=== PATIENT | male | born 1990 | race Caucasian/White ===

== ENCOUNTER 2017-01-10 17:04 | Inpatient (IN) | payer BC ==
[~2017-01-10] VITALS: Ht 177.8 cm; Wt 103.9 kg
[~2017-01-10 17:04] MED LIST: LRT5 PO
[2017-01-10] MEDS ORDERED: MoRPHine SULFATE 4 MG/ML 1 ML CARP\\VIAL IV STA (18:28)
[2017-01-10] MEDS ORDERED: ONDANSETRON INJ 2 MG/ML 2 ML VIAL IV STA ×2 (18:28→22:18)
[2017-01-10] MEDS ORDERED: SODIUM CHLORIDE 0.9% 1000ML 1,000 ML IV STA (18:28)
[2017-01-10 18:38] LABS: BASO % 0.1 %; BASO ABS # 0.01 K/uL (0-0.2); COMPLETE YES; EOS % 0.1 %; IG% 0.2 %; LYMPH % 7.2 %; LYMPH ABS # 0.94 K/uL (1.2-3.4); MEAN CORPUSCULAR HEMOGLOBIN 31.7 pg (25-34); MEAN CORPUSCULAR HGB CONC 35.7 g/dl (32-36); MEAN PLATELET VOLUME 9.8 fL (7.4-10.4); MONO % 4.3 %; NEUT % 88.1 %; PLATELET COUNT 255 K/uL (130-400); RED BLOOD COUNT 5.17 M/uL (4.7-6.1); WHITE BLOOD COUNT 13.06 K/uL (4.8-10.8)
--- NOTE | 2017-01-10 18:46 | EMERGENCY ROOM VISIT NOTE ---
History Report prepared by Jan: Jackson Mccarty Under the Supervision of: Dr. Imelda Sheth M.D. First contact with patient: 18:12 Chief Complaint: ABDOMINAL PAIN Stated Complaint: SHARP ABD PAIN Nursing Triage Summary: epigastic pain starting after lunch. History of Present Illness The patient is a 26 year old male who presents to the Emergency Room with complaints of intermittent abdominal pain beginning prior to arrival. The patient states that sometimes his pain is a 2/10 and then other times it is a 10 /10 in severity. He notes that he had an episode on his way to the ER and while in the waiting room. The patient states it feels like he has gas. He notes that he started a new diet a few weeks ago. The patient reports that for breakfast he had two teaspoons of apple cider vinegar with water. He has not had problems with this breakfast before. The patient states that for lunch he had a grapefruit, apple, and two pieces of chicken. He notes that yesterday he ate a sandwich, broccoli, cauliflower, and chicken. He also notes that he ran on the treadmill. The patient denies any significant weight loss and smoking. He reports that he does occasionally consume and average of 5 alcoholic beverages. The patient notes that he sees his PCP every 3 years. Source of History: patient Onset: Prior to arrival Position: abdomen Symptom Intensity: 5/10 Timing: intermittent Note: Associated symptoms: 'gas-like feeling'. The patient denies weight loss. Review of Systems See HPI for pertinent positives & negatives. A total of 10 systems reviewed and were otherwise negative. Past Medical & Surgical Medical Problems: (1) Small bowel obstruction Family History No pertinent family history stated. Social History Smoking Status: Never Smoker Alcohol Use: occasionally Marital Status: Housing Status: lives with significant other Current/Historical Medications Scheduled Amoxicillin & Pot Clavulanate (Augmentin 875-125 mg), 1 TAB PO BID Garcinia Cambogia-Chromium (Garcinia Cambogia), 3 TABS PO TODAY Scheduled PRN Ibuprofen Tab (Advil), 400 MG PO Q6 PRN for Headache or Pain Allergies Coded Allergies: No Known Allergies (Verified , 05/12/03) Physical Exam Vital Signs Date Time Temp Pulse Resp B/P Pulse Ox O2 Delivery O2 Flow Rate FiO2 01/10/17 23:33 62 18 144/78 97 Room Air 01/10/17 22:17 Room Air 01/10/17 22:15 78 18 135/85 97 Room Air 01/10/17 19:55 57 18 139/94 98 Room Air 01/10/17 17:08 36.7 81 16 155/100 92 Room Air Physical Exam Vital signs reviewed. General: Well-appearing, in no significant distress. HEENT: No scleral icterus, PERRLA, neck supple. Atraumatic. Cardiovascular: Regular rate and rhythm, no extra sounds. Pulmonary: Clear to auscultation bilaterally, normal work of breathing. Abdomen: Soft, epigastric tenderness, nondistended, positive bowel sounds. Musculoskeletal: Atraumatic, no peripheral edema. Neurologic: Patient awake alert and oriented x 3, full strength in all 4 extremities. Cranial nerves 2 through 12 grossly intact. Skin: Warm, dry, no rash Medical Decision & Procedures ER Provider Diagnostic Interpretation: Radiology results as stated below per my review and radiologist interpretation: ABDOMINAL ULTRASOUND, RIGHT UPPER QUADRANT HISTORY: epigastric pain, colicky. COMPARISON: None. FINDINGS: Pancreas: The pancreas demonstrates a normal echotexture. Liver: Unremarkable. Gallbladder: No gallbladder wall thickening. No gallstones. CBD: 5 mm. Right kidney: No hydronephrosis. IMPRESSION: No significant abnormality identified within the right upper quadrant. Electronically signed by: Juan Luis Brenner M.D. 01/10/2017 7:39 PM Dictated Date/Time: 01/10/2017 7:39 PM ABDOMEN AND PELVIS CT WITH IV CONTRAST CT DOSE: 701.98 mGy.cm HISTORY: epigastric abdominal pain TECHNIQUE: Multiaxial CT images of the abdomen and pelvis were performed following the use of intravenous contrast. COMPARISON STUDY: Abdominal ultrasound 01/10/2017. FINDINGS: The lung bases are clear. No pneumoperitoneum. No pneumatosis. The liver, gallbladder, pancreas, spleen, adrenal glands, and kidneys are unremarkable. No hydronephrosis. No retroperitoneal lymphadenopathy. The bladder is unremarkable. Trace pelvic free fluid. Trace fluid surrounding a few distended loops of small bowel within the right lower quadrant. These measure up to 3.5 cm in diameter. This is consistent with a small bowel obstruction. The distal transition point is seen within the right anterior abdomen on image 256. There may also be a proximal transition point within the right anterior abdomen on image 186. The proximal to mid loops of small bowel are decompressed. Therefore, these findings raise the possibility of a closed loop obstruction from an internal hernia. The appendix is surgically absent. A few colonic diverticula. IMPRESSION: 1. A few distended loops of small bowel located within the right lower quadrant consistent with a small bowel obstruction. There is small amount of mesenteric fluid surrounding the distended loops of small bowel. The small bowel both proximal and distal to these distended loops are decompressed. Therefore, this raises the possibility of a closed loop obstruction from an internal hernia. 2. The appendix is surgically absent. 3. A few colonic diverticula. 4. These findings were discussed with Dr. Sheth at 8:29 PM on 01/10/2017. Electronically signed by: Juan Luis Brenner M.D. 01/10/2017 8:29 PM Dictated Date/Time: 01/10/2017 8:19 PM Laboratory Results Test 01/10/17 18:20 01/10/17 18:45 Total Bilirubin 0.6 mg/dl (0.2-1) Direct Bilirubin 0.1 mg/dl (0-0.2) Aspartate Amino Transf (AST/SGOT) 19 U/L (15-37) Alanine Aminotransferase (ALT/SGPT) 34 U/L (12-78) Alkaline Phosphatase 67 U/L (45-117) Total Protein 8.4 gm/dl (6.4-8.2) Albumin 4.5 gm/dl (3.4-5.0) Lipase 156 U/L (73-393) Urine Color YELLOW Urine Appearance CLEAR (CLEAR) Urine pH 5.0 (4.5-7.5) Urine Specific [place] 1.029 (1.000-1.030) Urine Protein NEG (NEG) Urine Glucose (UA) NEG (NEG) Urine Ketones 1+ (NEG) Urine Occult Blood NEG (NEG) Urine Nitrite NEG (NEG) Urine Bilirubin NEG (NEG) Urine Urobilinogen NEG (NEG) Urine Leukocyte Esterase NEG (NEG) Laboratory results per my review. Medications Administered Medications (Trade) Dose Ordered Sig/Brandon Route Start Time Stop Time Status Last Admin Dose Admin Sodium Chloride (Nss 1000ml) 1,000 ml @ 999 mls/hr Q1H1M STAT IV 01/10/17 18:28 01/10/17 19:28 DC 01/10/17 18:46 999 MLS/HR Ondansetron HCl 4 mg 4 mg NOW STAT IV 01/10/17 18:28 01/10/17 18:30 DC 01/10/17 18:47 4 MG Acetaminophen/ Empty Bag (Ofirmev Iv/ Empty Iv Bag 100ml) 65 ml @ 260 mls/hr NOW STAT IV 01/10/17 18:48 01/10/17 19:02 DC 01/10/17 19:55 260 MLS/HR Ondansetron HCl (Zofran Inj) 4 mg NOW STAT IV 01/10/17 22:18 01/10/17 22:19 DC 01/10/17 22:26 4 MG ECG Indication: abdominal pain Rate (beats per minute): 65 Rhythm: sinus with SA Findings: RBBB (incomplete), no acute ischemic change, no ectopy ED Course 1821: Past medical records reviewed. The patient was evaluated in room B05. A complete history and physical examination was performed. 1828: Order Zofran Inj 4mg IV, Morphine Sulfate 4mg IV (Declined), Sodium Chloride 1000 ml @ 999 mls/hr IV 8: Ordered Acetaminophen 650mg/Empty Bag 65ml @ 260 mls/hr 2015: I reevaluated the patient and discussed his exam finding and treatment plan. He verbalized complete agreement. 2030: I discussed the patient's results with Dr. Brenner, Radiology to further evaluate the patient. 2035: I discussed the patient's case with Dr. Sena, Surgery to further evaluate the patient. 2049: Upon reevaluation, the patient is resting comfortably. I discussed laboratory and radiographic results with him. He verbalized agreement of the treatment plan. I spoke with Dr. Gresham of the [facility] Hospitalist Service. The patient will be evaluated for further management and care. 8: Ordered Zofran Inj 4mg IV Medical Decision Differential diagnosis: Etiologies such as appendicitis, diverticulitis, PUD, biliary pathology, UTI, pancreatitis, obstruction, mesenteric ischemia, aortic pathology, infections, inflammatory bowel disease, renal colic, as well as others were entertained. This patient was evaluated and appeared to be in some discomfort, but it appears to be a colicky type pain. IV access was obtained and laboratory work was drawn. Patient was hydrated with normal saline solution, given IV Zofran, but declined pain medication. Ultrasound of right upper quadrant was negative for acute cholecystitis. Laboratory work reveals a normal lipase. CT scan of the abdomen and pelvis was performed and is concerning for a partial SBO with a questionable closed loop. Dr. Multani in general surgery was consulted. He has recommended admission to the medicine service for nothing by mouth status, IV hydration and possible NG tube if needed. The patient was informed of the findings. The hospitalist service was contacted. He will be evaluated for further management. The patient is aware of plan and agrees. Consults Time Called: 2026 Consulting Physician: Dr. Brenner, Radiology Returned Call: 2029 I discussed the patient's results with Dr. Brenner, Radiology to further evaluate the patient. Additional Consults: Time Called: 2031 Consulted Physician: Dr. Sena, Surgery Returned Call: 2035 Additional Comments: I discussed the patient's case with Dr. Sena, Surgery to further evaluate the patient. Time Called: 2047 Consulted Physician: Dr. Gresham, Hospitalist Returned Call: 2049 Additional Comments: I spoke with Dr. Gresham of the [facility] Hospitalist Service. The patient will be evaluated for further management and care. Impression Primary Impression: Small bowel obstruction Scribe Attestation The scribe's documentation has been prepared under my direction and personally reviewed by me in its entirety. I confirm that the note above accurately reflects all work, treatment, procedures, and medical decision making performed by me. Departure Information Dispostion Being Evaluated By Hospitalist Prescriptions Amoxicillin & Pot Clavulanate (Augmentin 875-125 mg) 1 Tab Tab 1 TAB PO BID for 4 Days, #8 TAB Prov: Alfreda Crews PA-C 01/13/17 Referrals No Doctor, Assigned (PCP) Patient Instructions [facility]
[2017-01-10] MEDS ORDERED: ACETAMINOPHEN IV 650 MG in EMPTY BAG 0 ML IV STA (18:48)
[2017-01-10] MEDS ORDERED: GARC1TAB PO (18:53)
[2017-01-10] MEDS ORDERED: IBUP-103 PO (18:53)
[2017-01-10 18:54] LABS: BUN/CREATININE RATIO 19.2 (10-20); CREATININE 1.1 mg/dl (0.60-1.40); MAGNESIUM 2.3 mg/dl (1.8-2.4); POTASSIUM 4.1 mmol/L (3.5-5.1)
[2017-01-10 19:11] LABS: URINE APPEARANCE CLEAR (CLEAR); URINE BILIRUBIN NEG (NEG); URINE COLOR YELLOW; URINE NITRITE NEG (NEG); URINE SPECIFIC GRAVITY 1.029 (1.000-1.030); UROBILINOGEN NEG (NEG); ZZUR CULT IF INDIC CLEAN CATCH NO
[2017-01-10 19:30] LABS: MANUAL MICROSCOPIC REQUIRED? NO; REVIEW REQ? NO
--- NOTE | 2017-01-10 19:41 | DIAGNOSTIC IMAGING REPORT ---
ABDOMINAL ULTRASOUND, RIGHT UPPER QUADRANT HISTORY: epigastric pain, colicky. COMPARISON: None. FINDINGS: Pancreas: The pancreas demonstrates a normal echotexture. Liver: Unremarkable. Gallbladder: No gallbladder wall thickening. No gallstones. CBD: 5 mm. Right kidney: No hydronephrosis. IMPRESSION: No significant abnormality identified within the right upper quadrant. Electronically signed by: Juan Luis Brenner M.D. 01/10/2017 7:39 PM Dictated Date/Time: 01/10/2017 7:39 PM
[2017-01-10] MEDS ORDERED: OPTIRAY 320 IV PRN (20:15)
--- NOTE | 2017-01-10 20:30 | DIAGNOSTIC IMAGING REPORT ---
ABDOMEN AND PELVIS CT WITH IV CONTRAST CT DOSE: 701.98 mGy.cm HISTORY: epigastric abdominal pain TECHNIQUE: Multiaxial CT images of the abdomen and pelvis were performed following the use of intravenous contrast. COMPARISON STUDY: Abdominal ultrasound 01/10/2017. FINDINGS: The lung bases are clear. No pneumoperitoneum. No pneumatosis. The liver, gallbladder, pancreas, spleen, adrenal glands, and kidneys are unremarkable. No hydronephrosis. No retroperitoneal lymphadenopathy. The bladder is unremarkable. Trace pelvic free fluid. Trace fluid surrounding a few distended loops of small bowel within the right lower quadrant. These measure up to 3.5 cm in diameter. This is consistent with a small bowel obstruction. The distal transition point is seen within the right anterior abdomen on image 256. There may also be a proximal transition point within the right anterior abdomen on image 186. The proximal to mid loops of small bowel are decompressed. Therefore, these findings raise the possibility of a closed loop obstruction from an internal hernia. The appendix is surgically absent. A few colonic diverticula. IMPRESSION: 1. A few distended loops of small bowel located within the right lower quadrant consistent with a small bowel obstruction. There is small amount of mesenteric fluid surrounding the distended loops of small bowel. The small bowel both proximal and distal to these distended loops are decompressed. Therefore, this raises the possibility of a closed loop obstruction from an internal hernia. 2. The appendix is surgically absent. 3. A few colonic diverticula. 4. These findings were discussed with Dr. Sheth at 8:29 PM on 01/10/2017. Electronically signed by: Juan Luis Brenner M.D. 01/10/2017 8:29 PM Dictated Date/Time: 01/10/2017 8:19 PM
[2017-01-10 20:43] LABS: CALCIUM 9.9 mg/dl (8.5-10.1)
[2017-01-10 22:17] VITALS: Ht 177.8 cm; Wt 103.9 kg
--- NOTE | 2017-01-10 23:26 | History and Physical ---
History & Physical Date & Time of Service: January 10, 2017 at 23:26 Chief Complaint: Sharp Abd Pain Primary Care Physician: No Doctor, Assigned History of Present Illness Source: patient, partner The patient is a 18-year-old male who presents emergency department with intermittent abdominal pain that began earlier in the day prior to arrival. Intensity of pain is variable from 2/10-10/10. The patient reports that he feels like he has a lot of gas. He has had dry heaves, but no active vomiting. He reports that he started a new diet a few weeks ago, and today's breakfast consisted of 2 teaspoons of apple cider vinegar with water, which she has tolerated well before. His lungs today consisted of a grapefruit, apple and 2 pieces of chicken. Yesterday he ate a sandwich, broccoli, cauliflower and chicken. He reports that he drinks an adequate amount of water. 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 He has not had any recent travel or sick exposures that he is aware of. He does have a history of a ruptured appendix that required surgery several years ago. Social History Smoking Status: Never Smoker Smokeless Tobacco Use: No Alcohol Use: socially Drug Use: none Marital Status: Housing status: lives with family Occupational Status: employed Multi-Drug Resistant Organisms History of MDRO: No Allergies Coded Allergies: No Known Allergies (Verified , 05/12/03) Home Medications Scheduled Garcinia Cambogia-Chromium (Garcinia Cambogia), 3 TABS PO TODAY Scheduled PRN Ibuprofen Tab (Advil), 400 MG PO Q6 PRN for Headache or Pain Review of Systems The patient denies chest pain, palpitations, shortness of breath, cough, lower extremity swelling, vision change, hearing change, sore throat, fevers, chills, sweats, weight change, fatigue, blood in urine or stool, dysuria, urinary frequency or urgency, lightheadedness, dizziness, headache, memory loss, rash, abnormal bruising or bleeding, imbalance, focal or generalized weakness, numbness or tingling in arms or legs, arthralgias or myalgias, back or neck pain , night sweats, or allergy symptoms. The review of systems is otherwise negative other than for that already noted above, and at least 10 systems have been reviewed. Physical Exam Vital Signs Date Time Temp Pulse Resp B/P Pulse Ox O2 Delivery O2 Flow Rate FiO2 01/10/17 22:17 Room Air 01/10/17 22:15 78 18 135/85 97 Room Air 01/10/17 19:55 57 18 139/94 98 Room Air 01/10/17 17:08 36.7 81 16 155/100 92 Room Air The patient is awake, well-developed and adequately nourished, alert and oriented 3, normocephalic and atraumatic, lying in bed and in no acute distress after receiving IV morphine. HEENT--PERRL, EOMI, mucous membranes and oropharynx dry. Neck--supple, no JVD or bruits, thyroid normal, trachea midline, no adenopathy. Heart--normal S1 and S2, no extra beats, no murmurs, rubs or gallops. Lungs--clear bilaterally with good air movement, no respiratory distress, no accessory muscle use. Abdomen--normal bowel sounds and soft, mildly tender right lower quadrant, nondistended, no hernias or masses, no organomegaly. Extremities--no cyanosis, clubbing or edema. There are good distal pulses b/l. Dermatologic--normal skin turgor, normal color, warm and dry, no abnormal lymph nodes, no rash. Appendectomy scar noted right lower quadrant. Neurologic--cranial nerves II through XII grossly intact, motor and sensory examination normal. Rheumatologic--normal range of motion, nontender, muscles and joints. Psychiatric--normal affect. Diagnostics Laboratory Results Results Past 24 Hours Test 01/10/17 18:20 01/10/17 18:45 Range/Units White Blood Count 13.06 4.8-10.8 K/uL Red Blood Count 5.17 4.7-6.1 M/uL Hemoglobin 16.4 14.0-18.0 g/dL Hematocrit 46.0 42-52 % Mean Corpuscular Volume 89.0 80-100 fL Mean Corpuscular Hemoglobin 31.7 25-34 pg Mean Corpuscular Hemoglobin Concent 35.7 32-36 g/dl Platelet Count 255 130-400 K/uL Mean Platelet Volume 9.8 7.4-10.4 fL Neutrophils (%) (Auto) 88.1 % Lymphocytes (%) (Auto) 7.2 % Monocytes (%) (Auto) 4.3 % Eosinophils (%) (Auto) 0.1 % Basophils (%) (Auto) 0.1 % Neutrophils # (Auto) 11.51 1.4-6.5 K/uL Lymphocytes # (Auto) 0.94 1.2-3.4 K/uL Monocytes # (Auto) 0.56 0.11-0.59 K/uL Eosinophils # (Auto) 0.01 0-0.5 K/uL Basophils # (Auto) 0.01 0-0.2 K/uL RDW Standard Deviation 38.9 36.4-46.3 fL RDW Coefficient of Variation 12.0 11.5-14.5 % Immature Granulocyte % (Auto) 0.2 % Immature Granulocyte # (Auto) 0.03 0.00-0.02 K/uL Sodium Level 137 136-145 mmol/L Potassium Level 4.1 3.5-5.1 mmol/L Chloride Level 102 98-107 mmol/L Carbon Dioxide Level 29 21-32 mmol/L Anion Gap 6.0 3-11 mmol/L Blood Urea Nitrogen 21 7-18 mg/dl Creatinine 1.10 0.60-1.40 mg/dl Est Creatinine Clear Calc Drug Dose 120.7 ml/min Estimated GFR () 105.3 Estimated GFR (Non- 90.9 BUN/Creatinine Ratio 19.2 10-20 Random Glucose 117 70-99 mg/dl Calcium Level 9.9 8.5-10.1 mg/dl Magnesium Level 2.3 1.8-2.4 mg/dl Total Bilirubin 0.6 0.2-1 mg/dl Direct Bilirubin 0.1 0-0.2 mg/dl Aspartate Amino Transf (AST/SGOT) 19 15-37 U/L Alanine Aminotransferase (ALT/SGPT) 34 12-78 U/L Alkaline Phosphatase 67 45-117 U/L Total Protein 8.4 6.4-8.2 gm/dl Albumin 4.5 3.4-5.0 gm/dl Lipase 156 73-393 U/L Urine Color YELLOW Urine Appearance CLEAR CLEAR Urine pH 5.0 4.5-7.5 Urine Specific [place] 1.029 1.000-1.030 Urine Protein NEG NEG Urine Glucose (UA) NEG NEG Urine Ketones 1+ NEG Urine Occult Blood NEG NEG Urine Nitrite NEG NEG Urine Bilirubin NEG NEG Urine Urobilinogen NEG NEG Urine Leukocyte Esterase NEG NEG Diagnostic Radiology Patient Name: CONFER,AYLA JODIE Unit Number: [id number] Dictated: 01/10/171938 Transcribed: 01/10/171938 PA Printed Date/Time: [~ rep prt dt]/[~ rep prt tm] [~ rep ct labl] - [~ rep ct ivnm] [facility] [place] [address] Dictated: 01/10/171938 Transcribed: 01/10/171938 PAJ Printed Date/Time: [~ rep prt dt]/[~ rep prt tm] [~ rep ct labl] - [~ rep ct ivnm] ABDOMINAL ULTRASOUND, RIGHT UPPER QUADRANT HISTORY: epigastric pain, colicky. COMPARISON: None. FINDINGS: Pancreas: The pancreas demonstrates a normal echotexture. Liver: Unremarkable. Gallbladder: No gallbladder wall thickening. No gallstones. CBD: 5 mm. Right kidney: No hydronephrosis. IMPRESSION: No significant abnormality identified within the right upper quadrant. Electronically signed by: Juan Luis Brenner M.D. 01/10/2017 7:39 PM Dictated Date/Time: 01/10/2017 7:39 PM The status of this report is Signed. Draft = Not yet reviewed or approved by Radiologist. Signed = Reviewed and approved by Radiologist. <AttendingPhy></AttendingPhy> <FamilyPhy>No Doctor, Assigned</FamilyPhy> < PrimaryPhy>No Doctor, Assigned</PrimaryPhy> <UnitNumber>[id number]</UnitNumber> <VisitNumber>[id number]</VisitNumber> <PatientName>AYLA CRUZ</ PatientName> <DateOfBirth>1990</DateOfBirth> <Location>[facility]</Location> < ServiceDate>01/10/17</ServiceDate> <MNE>ESINDI</MNE> <OrderingPhy>Imelda Sheth M.D.</OrderingPhy> <OrderingPhyMNE>f rep ord dr de jesus</OrderingPhyMNE> < DictatingPhyMNE>f rep dict dr de jesus</DictatingPhyMNE> <CCListMNE>f rep ct mne</ CCListMNE> <AdmittingPhyMNE>f pt admit dr de jesus</AdmittingPhyMNE> <AttendingPhyMNE >f pt attend dr de jesus</AttendingPhyMNE> <ConsultingPhyMNE>f pt consult dr de jesus</ConsultingPhyMNE> <FamilyPhyMNE>f pt fam dr de jesus</FamilyPhyMNE> <OtherPhyMNE>f pt other dr de jesus</OtherPhyMNE> < PrimaryPhyMNE>f pt prim care dr de jesus</PrimaryPhyMNE> <ReferringPhyMNE>f pt referring dr de jesus</ReferringPhyMNE> Patient Name: AYLA CRUZ Unit Number: [id number] Dictated: 01/10/172018 Transcribed: 01/10/172018 [employer] Printed Date/Time: [~ rep prt dt]/[~ rep prt tm] [~ rep ct labl] - [~ rep ct ivnm] [facility] Radiology Department [place] [id number] Dictated: 01/10/172018 Transcribed: 01/10/172018 [employer] Printed Date/Time: [~ rep prt dt]/[~ rep prt tm] [~ rep ct labl] - [~ rep ct ivnm] ABDOMEN AND PELVIS CT WITH IV CONTRAST CT DOSE: 701.98 mGy.cm HISTORY: epigastric abdominal pain TECHNIQUE: Multiaxial CT images of the abdomen and pelvis were performed following the use of intravenous contrast. COMPARISON STUDY: Abdominal ultrasound 01/10/2017. FINDINGS: The lung bases are clear. No pneumoperitoneum. No pneumatosis. The liver, gallbladder, pancreas, spleen, adrenal glands, and kidneys are unremarkable. No hydronephrosis. No retroperitoneal lymphadenopathy. The bladder is unremarkable. Trace pelvic free fluid. Trace fluid surrounding a few distended loops of small bowel within the right lower quadrant. These measure up to 3.5 cm in diameter. This is consistent with a small bowel obstruction. The distal transition point is seen within the right anterior abdomen on image 256. There may also be a proximal transition point within the right anterior abdomen on image 186. The proximal to mid loops of small bowel are decompressed. Therefore, these findings raise the possibility of a closed loop obstruction from an internal hernia. The appendix is surgically absent. A few colonic diverticula. IMPRESSION: 1. A few distended loops of small bowel located within the right lower quadrant consistent with a small bowel obstruction. There is small amount of mesenteric fluid surrounding the distended loops of small bowel. The small bowel both proximal and distal to these distended loops are decompressed. Therefore, this raises the possibility of a closed loop obstruction from an internal hernia. 2. The appendix is surgically absent. 3. A few colonic diverticula. 4. These findings were discussed with Dr. Sheth at 8:29 PM on 01/10/2017. Electronically signed by: Juan Luis Brenner M.D. 01/10/2017 8:29 PM Dictated Date/Time: 01/10/2017 8:19 PM The status of this report is Signed. Draft = Not yet reviewed or approved by Radiologist. Signed = Reviewed and approved by Radiologist. <AttendingPhy></AttendingPhy> <FamilyPhy>No Doctor, Assigned</FamilyPhy> < PrimaryPhy>No Doctor, Assigned</PrimaryPhy> <UnitNumber>[id number]</UnitNumber> <VisitNumber>[id number]</VisitNumber> <PatientName>NANCYAYLA JODIE</ PatientName> <DateOfBirth>1990</DateOfBirth> <Location>C.EDB</Location> < ServiceDate>01/10/17</ServiceDate> <MNE>ESINDI</MNE> <OrderingPhy>Imelda Sheth M.D.</OrderingPhy> <OrderingPhyMNE>f rep ord dr de jesus</OrderingPhyMNE> < DictatingPhyMNE>f rep dict dr de jesus</DictatingPhyMNE> <CCListMNE>f rep ct neal</ CCListMNE> <AdmittingPhyMNE>f pt admit dr de jesus</AdmittingPhyMNE> <AttendingPhyMNE >f pt attend dr de jesus</AttendingPhyMNE> <ConsultingPhyMNE>f pt consult dr de jesus</ConsultingPhyMNE> <FamilyPhyMNE>f pt fam dr de jesus</FamilyPhyMNE> <OtherPhyMNE>f pt other dr de jesus</OtherPhyMNE> < PrimaryPhyMNE>f pt prim care dr de jesus</PrimaryPhyMNE> <ReferringPhyMNE>f pt referring dr de jesus</ReferringPhyMNE> EKG EKG shows normal sinus rhythm at 65 bpm, with sinus arrhythmia, incomplete right bundle branch block, no acute ST-T changes. Impression Assessment and Plan Small bowel obstruction/possible closed loop obstruction as with internal hernia --the patient be admitted to the medical surgical floor with nothing by mouth status. He has had 2 doses of Zofran in the emergency department with chest control of his nausea. We have discussed the possible need for NG tube if his symptoms are recurrent and were not relieved by medication. He'll be placed on normal saline with potassium chloride 20 mEq at 100 mils per hour, Zosyn 3.375 mg IV every 6 hours, Protonix 40 mg IV daily and Zofran 4 mg IV every [address] Multani has been consulted by the emergency department, and he has asked that the patient be admitted to medical service, and he will be consulted to see patient during this admission. There is no specific mention of adhesions on CT, however, the patient has a history of a significant appendiceal rupture. Level of Care Med/Surg Advanced Directives Existing Advance Directive: No Existing Living Will: No Existing Power of House Mover: No Resuscitation Status FULL RESUSCITATION VTE Prophylaxis Given or contraindicated: SCD's Social Service Consult None Apply
[2017-01-10] MEDS ORDERED: ONDANSETRON INJ 2 MG/ML 2 ML VIAL IV PRN (23:45)
[2017-01-10] MEDS ORDERED: MoRPHine SULFATE 4 MG/ML 1 ML CARP\\VIAL IV PRN (23:45)
[2017-01-10] MEDS ORDERED: PROMETHAZINE HCL INJ 25 MG in SODIUM CHLORIDE 0.9% 50ML 50 ML IV PRN (23:45)
[2017-01-10] MEDS ORDERED: DiphenhydrAMINE HCL 50 MG/ML VIAL IV PRN (23:45)
[2017-01-10] MEDS ORDERED: MoRPHine SULFATE 2 MG/ML CARP IV PRN (23:45)
[2017-01-11] MEDS ORDERED: PIPERACILL/TAZOBAC IV 3.375 GM in DEXTROSE 5% 100ML 100 ML IV SCH ×2
[2017-01-11] MEDS ORDERED: KETOROLAC TROMETHAMINE 30 MG/ML VIAL ONE (00:06)
[2017-01-11] MEDS: KETOROLAC TROMETHAMINE 30 MG/ML VIAL IV PRN ×4 (00:12→21:11)
[2017-01-11 00:40] VITALS: BP 135/82; PULSE 64; TEMP 37; O2SAT 94
[2017-01-11] MEDS: NSS + 20MEQ KCL 1000ML 1,000 ML IV SCH ×3 (01:15→21:10)
[2017-01-11] MEDS ORDERED: PIPERACILL/TAZOBAC CONSULT ACTIVE PRN (01:15)
[2017-01-11] MEDS ORDERED: PIPERACILL/TAZOBAC IV 3.375 GM in DEXTROSE 5% 100ML IV ONE (01:15)
[2017-01-11] MEDS: ACETAMINOPHEN IV 100 ML IV PRN ×2 (05:30→15:02)
[2017-01-11] MEDS: PIPERACILL/TAZOBAC IV 3.375 GM in DEXTROSE 5% 100ML IV SCH ×3 (06:25→21:31)
[2017-01-11 07:33] LABS: BASO % 0.1 %; BASO ABS # 0.01 K/uL (0-0.2); COMPLETE YES; EOS % 0.2 %; HEMATOCRIT 43.2 % (42-52); IG% 0.1 %; LYMPH % 8.2 %; LYMPH ABS # 0.98 K/uL (1.2-3.4); MEAN CELL VOLUME 89.1 fL (80-100); MEAN CORPUSCULAR HEMOGLOBIN 30.3 pg (25-34); MEAN PLATELET VOLUME 9.8 fL (7.4-10.4); NEUT % 82.4 %; PLATELET COUNT 248 K/uL (130-400); RED BLOOD COUNT 4.85 M/uL (4.7-6.1); WHITE BLOOD COUNT 11.96 K/uL (4.8-10.8)
[2017-01-11 07:55] VITALS: BP 132/88; PULSE 70; TEMP 36.8; O2SAT 95
--- NOTE | 2017-01-11 07:57 | Pre-Operative Consultation ---
History General Date of Service: January 11, 2017. HPI HPI: The patient is a 26 year old male being seen for SBO. He was admitted with complaints of intermittent abdominal pain beginning prior to arrival. Currently not having any pain. The patient states it feels like he has gas. He notes that he started a new diet a few weeks ago. He has been passing flatus and had a BM yesterday AM. He denies any vomiting but has some waves of nausea. Had an exploration via right lower abdominal incision for perforated appendix years ago. Historian: patient Procedure Urgency: Acute Risk Assessment Daily beta lizbet use?: No Medical & Surgical History Past Medical History: no pertinent history Past Surgical History: appendectomy (open) Family History Family History: no pertinent family hx Social History Hx Tobacco Use In Past Year?: Yes Smoking Status: Never Smoker Alcohol: occasionally Drug Use: none Marital status: Housing status: lives with family Occupation status: employed Allergies Allergies: Coded Allergies: No Known Allergies (Verified , 05/12/03) Medications Current Inpatient Medications Current Inpatient Medications Medications (Trade) Dose Ordered Sig/Brandon Route Start Time Stop Time Status Last Admin Dose Admin Ioversol (Optiray 320) 125 ml UD PRN IV 01/10/17 20:15 01/14/17 20:14 Ondansetron HCl 4 mg 4 mg Q6H PRN IV 01/10/17 23:45 02/09/17 23:44 Promethazine HCl 25 mg/Sodium Chloride 51 ml @ 204 mls/hr Q6H PRN IV 01/10/17 23:45 02/09/17 23:44 Pantoprazole Sodium 40 mg/ Syringe 10 ml @ 5 mls/min DAILY@11 IV 01/11/17 11:00 02/10/17 10:59 Potassium Chloride/Sodium Chloride 1,000 ml @ 100 mls/hr Q10H IV 01/11/17 01:15 02/10/17 01:14 01/11/17 01:15 100 MLS/HR Acetaminophen (Ofirmev Iv) 100 ml @ 400 mls/hr Q8H PRN IV 01/10/17 23:45 02/09/17 23:44 01/11/17 05:30 400 MLS/HR Diphenhydramine HCl (Benadryl Inj) 25 mg Q4H PRN IV 01/10/17 23:45 02/09/17 23:44 Ketorolac Tromethamine (Toradol Inj) 30 mg Q6H PRN IV 01/10/17 23:45 01/15/17 23:44 01/11/17 00:12 30 MG Morphine Sulfate (MoRPHine SULFATE INJ) 2 mg Q2H PRN IV 01/10/17 23:45 01/24/17 23:44 Morphine Sulfate 4 mg 4 mg Q2H PRN IV 01/10/17 23:45 01/24/17 23:44 Piperacillin Sod/ Tazobactam Sod/ Dextrose (Zosyn Iv/D5 100ml) 115 ml @ 28.75 mls/ hr Q8H IV 01/11/17 06:00 01/21/17 05:59 01/11/17 06:25 28.75 MLS/HR Piperacillin Sod/ Tazobactam Sod (Consult) 1 ea UD PRN N/A 01/11/17 01:15 02/10/17 01:14 Review of Systems Review of Systems Constitutional: denies chills, denies diaphoresis, denies fever, denies weakness Eyes: reports: no symptoms ENT: reports: no symptoms reported Cardiovascular: denies: chest pain, chest pressure, chest tightness, palpitations Respiratory: denies: cough, short of breath, stridor, wheezing Gastrointestinal: abdominal pain, denies constipation, denies diarrhea, nausea , denies vomiting Genitourinary - Male: reports: no symptoms Musculoskeletal: denies back pain, denies joint pain, denies joint swelling, denies muscle stiffness Integumentary: denies change in color, denies change in hair/nails, denies dryness, denies lumps, denies rash Neurologic: denies: focal weakness, general weakness, headache, pre-existing deficit Psychiatric: reports: no symptoms Endocrine: denies: cold intolerance, heat intolerance Hematologic / Lymphatic: denies: anemia, easy bleeding, easy bruising Allergic / Immunologic: denies: environmental allergies, frequent infections, hives, pet sensitivities, poor healing Physical Exam Physical Exam General Appearance: + WD/WN, No distress Ears, Nose, Throat: + normal ENT inspection Neck: No lymphadenophy, No stiffness, No tenderness, No tracheal deviation Respiratory: No crackes, No decreased breath sounds, No respiratory distress, No rhonchi, No stridor, No wheezing Cardiovascular: No abnormal rate, No diastolic murmur, No gallop/S3, No gallop/ S4, No systolic murmur Abdomen: + other (healed RLQ transverse incision), + tenderness (minimal), No abnormal bowel sounds, No distension, No guarding, No hernia, No rebound Extremities: No calf tenderness, No deformity, No inflammation, No swelling Neurologic/Psychiatric: No disorientation, No motor deficit/weakness, No sensory deficit Skin Characteristics: No diaphoresis, No jaundice, No pallor, No rash Lymphatic: No abnormal adenopathy Diagnostics Labs Labs Results Past 24 Hours Test 01/10/17 18:20 01/10/17 18:45 01/11/17 06:50 Range/Units White Blood Count 13.06 11.96 4.8-10.8 K/uL Red Blood Count 5.17 4.85 4.7-6.1 M/uL Hemoglobin 16.4 14.7 14.0-18.0 g/dL Hematocrit 46.0 43.2 42-52 % Mean Corpuscular Volume 89.0 89.1 80-100 fL Mean Corpuscular Hemoglobin 31.7 30.3 25-34 pg Mean Corpuscular Hemoglobin Concent 35.7 34.0 32-36 g/dl Platelet Count 255 248 130-400 K/uL Mean Platelet Volume 9.8 9.8 7.4-10.4 fL Neutrophils (%) (Auto) 88.1 82.4 % Lymphocytes (%) (Auto) 7.2 8.2 % Monocytes (%) (Auto) 4.3 9.0 % Eosinophils (%) (Auto) 0.1 0.2 % Basophils (%) (Auto) 0.1 0.1 % Neutrophils # (Auto) 11.51 9.86 1.4-6.5 K/uL Lymphocytes # (Auto) 0.94 0.98 1.2-3.4 K/uL Monocytes # (Auto) 0.56 1.08 0.11-0.59 K/uL Eosinophils # (Auto) 0.01 0.02 0-0.5 K/uL Basophils # (Auto) 0.01 0.01 0-0.2 K/uL RDW Standard Deviation 38.9 39.1 36.4-46.3 fL RDW Coefficient of Variation 12.0 12.2 11.5-14.5 % Immature Granulocyte % (Auto) 0.2 0.1 % Immature Granulocyte # (Auto) 0.03 0.01 0.00-0.02 K/uL Sodium Level 137 136-145 mmol/L Potassium Level 4.1 3.5-5.1 mmol/L Chloride Level 102 98-107 mmol/L Carbon Dioxide Level 29 21-32 mmol/L Anion Gap 6.0 3-11 mmol/L Blood Urea Nitrogen 21 7-18 mg/dl Creatinine 1.10 0.60-1.40 mg/dl Est Creatinine Clear Calc Drug Dose 120.7 ml/min Estimated GFR () 105.3 Estimated GFR (Non- 90.9 BUN/Creatinine Ratio 19.2 10-20 Random Glucose 117 70-99 mg/dl Calcium Level 9.9 8.5-10.1 mg/dl Magnesium Level 2.3 1.8-2.4 mg/dl Total Bilirubin 0.6 0.2-1 mg/dl Direct Bilirubin 0.1 0-0.2 mg/dl Aspartate Amino Transf (AST/SGOT) 19 15-37 U/L Alanine Aminotransferase (ALT/SGPT) 34 12-78 U/L Alkaline Phosphatase 67 45-117 U/L Total Protein 8.4 6.4-8.2 gm/dl Albumin 4.5 3.4-5.0 gm/dl Lipase 156 73-393 U/L Urine Color YELLOW Urine Appearance CLEAR CLEAR Urine pH 5.0 4.5-7.5 Urine Specific [place] 1.029 1.000-1.030 Urine Protein NEG NEG Urine Glucose (UA) NEG NEG Urine Ketones 1+ NEG Urine Occult Blood NEG NEG Urine Nitrite NEG NEG Urine Bilirubin NEG NEG Urine Urobilinogen NEG NEG Urine Leukocyte Esterase NEG NEG Diagnostic Radiology Diagnostic Radiology ABDOMEN AND PELVIS CT WITH IV CONTRAST CT DOSE: 701.98 mGy.cm HISTORY: epigastric abdominal pain TECHNIQUE: Multiaxial CT images of the abdomen and pelvis were performed following the use of intravenous contrast. COMPARISON STUDY: Abdominal ultrasound 01/10/2017. FINDINGS: The lung bases are clear. No pneumoperitoneum. No pneumatosis. The liver, gallbladder, pancreas, spleen, adrenal glands, and kidneys are unremarkable. No hydronephrosis. No retroperitoneal lymphadenopathy. The bladder is unremarkable. Trace pelvic free fluid. Trace fluid surrounding a few distended loops of small bowel within the right lower quadrant. These measure up to 3.5 cm in diameter. This is consistent with a small bowel obstruction. The distal transition point is seen within the right anterior abdomen on image 256. There may also be a proximal transition point within the right anterior abdomen on image 186. The proximal to mid loops of small bowel are decompressed. Therefore, these findings raise the possibility of a closed loop obstruction from an internal hernia. The appendix is surgically absent. A few colonic diverticula. IMPRESSION: 1. A few distended loops of small bowel located within the right lower quadrant consistent with a small bowel obstruction. There is small amount of mesenteric fluid surrounding the distended loops of small bowel. The small bowel both proximal and distal to these distended loops are decompressed. Therefore, this raises the possibility of a closed loop obstruction from an internal hernia. 2. The appendix is surgically absent. 3. A few colonic diverticula. 4. These findings were discussed with Dr. Sheth at 8:29 PM on 01/10/2017. Impression Assessment and Plan Assessment and Plan SBO -CT done without oral contrast; will repeat -IVF -ngt if begins vomiting -currently feels better -if closed loop may need exploration
[2017-01-11 08:05] VITALS: O2SAT 95
[2017-01-11 08:09] LABS: BUN/CREATININE RATIO 13.7 (10-20); CREATININE 0.92 mg/dl (0.60-1.40); MAGNESIUM 2.3 mg/dl (1.8-2.4)
[2017-01-11 08:28] LABS: CALCIUM 8.5 mg/dl (8.5-10.1)
--- NOTE | 2017-01-11 10:39 | DIAGNOSTIC IMAGING REPORT ---
ABDOMEN AND PELVIS CT WITH ORAL CONTRAST CT DOSE: 874.57 mGy.cm HISTORY: Pain SBO; possible closed loop TECHNIQUE: Multiaxial CT images of the abdomen and pelvis were performed following the use of oral contrast. COMPARISON STUDY: 01/10/2017 FINDINGS: liver spleen and pancreas are unremarkable. Slight gallbladder distention. Several distended loops of small bowel the right lower quadrant are again noted. This is similar as compared to the prior exam to perhaps slightly increased in distention. The colonic bowel pattern is nonobstructive. Colonic diverticuli are present. There is no evidence of diverticulitis. IMPRESSION: 1. Persistent small bowel distention within the right lower quadrant again consistent with partial small bowel obstructive change. This again raises the possibility of developing] closed loop obstructive process. 2. Trace amount of surrounding mesenteric edema 3. Stable colonic diverticulosis. 4. No significant change compared to the prior study. Electronically signed by: Woo Julio M.D. 01/11/2017 10:38 AM Dictated Date/Time: 01/11/2017 10:33 AM
[2017-01-11] MEDS: PANTOprazole INJ 40 MG in SYRINGE 0 ML IV SCH (11:26)
[2017-01-11 15:25] VITALS: BP 131/89; PULSE 76; TEMP 36.8; O2SAT 95
--- NOTE | 2017-01-11 17:04 | Progress Note ---
Subjective Date of Service: January 11, 2017. Subjective Pt evaluation today including: conversation w/ patient, physical exam, chart review, lab review, review of studies, review of inpatient medication list Pain: no pain reported Voiding: no voiding problems, no incontinence Pt is admitted with complaints of intermittent abdominal pain beginning prior to arrival. Currently not having any abdominal pain, nausea, vomiting and diarrhea. The patient states it feels like he has gas. He notes that he started a new diet a few weeks ago. He has been passing flatus and had a BM yesterday AM. Review of Systems All Other Systems: Reviewed and Negative Medications Medications (Trade) Dose Ordered Sig/Brandon Route Start Time Stop Time Status Last Admin Dose Admin Sodium Chloride (Nss 1000ml) 1,000 ml @ 999 mls/hr Q1H1M STAT IV 01/10/17 18:28 01/10/17 19:28 DC 01/10/17 18:46 999 MLS/HR Ondansetron HCl 4 mg 4 mg NOW STAT IV 01/10/17 18:28 01/10/17 18:30 DC 01/10/17 18:47 4 MG Acetaminophen/ Empty Bag (Ofirmev Iv/ Empty Iv Bag 100ml) 65 ml @ 260 mls/hr NOW STAT IV 01/10/17 18:48 01/10/17 19:02 DC 01/10/17 19:55 260 MLS/HR Ondansetron HCl 4 mg 4 mg NOW STAT IV 01/10/17 22:18 01/10/17 22:19 DC 01/10/17 22:26 4 MG Pantoprazole Sodium 40 mg/ Syringe 10 ml @ 5 mls/min DAILY@11 IV 01/11/17 11:00 02/10/17 10:59 01/11/17 11:26 5 MLS/MIN Potassium Chloride/Sodium Chloride 1,000 ml @ 100 mls/hr Q10H IV 01/11/17 01:15 02/10/17 01:14 01/11/17 11:29 100 MLS/HR Acetaminophen (Ofirmev Iv) 100 ml @ 400 mls/hr Q8H PRN IV 01/10/17 23:45 02/09/17 23:44 01/11/17 15:02 400 MLS/HR Ketorolac Tromethamine 30 mg 30 mg Q6H PRN IV 01/10/17 23:45 01/15/17 23:44 01/11/17 15:34 30 MG Piperacillin Sod/ Tazobactam Sod 3.375 gm/Dextrose 115 ml @ 230 mls/hr NOW ONCE IV 01/11/17 01:15 01/11/17 01:44 DC 01/11/17 01:15 230 MLS/HR Piperacillin Sod/ Tazobactam Sod/ Dextrose (Zosyn Iv/D5 100ml) 115 ml @ 28.75 mls/ hr Q8H IV 01/11/17 06:00 01/21/17 05:59 01/11/17 14:18 28.75 MLS/HR Objective Vital Signs Date Time Temp Pulse Resp B/P Pulse Ox O2 Delivery O2 Flow Rate FiO2 01/11/17 15:30 Room Air 01/11/17 15:25 36.8 76 16 131/89 95 Room Air 01/11/17 08:05 95 Room Air 01/11/17 07:55 36.8 70 18 132/88 95 Room Air 01/11/17 07:30 Room Air 01/11/17 00:40 37.0 64 16 135/82 94 Room Air 01/11/17 00:40 Room Air 01/11/17 00:15 59 18 127/78 98 Room Air 01/10/17 23:33 62 18 144/78 97 Room Air 01/10/17 22:17 Room Air 01/10/17 22:15 78 18 135/85 97 Room Air 01/10/17 19:55 57 18 139/94 98 Room Air 01/10/17 17:08 36.7 81 16 155/100 92 Room Air Physical Exam General Appearance: no apparent distress Neck: supple Respiratory/Chest: normal breath sounds, no respiratory distress Cardiovascular: regular rate, rhythm, no edema, no murmur Abdomen: normal bowel sounds, soft, + distended Extremities: normal range of motion, normal inspection, no pedal edema, no calf tenderness Neurologic/Psychiatric: alert, normal mood/affect, oriented x 3 Skin: no rash Lymphatic: no adenopathy Laboratory Results Last 24 Hours Test 01/10/17 18:20 01/10/17 18:45 01/11/17 06:50 White Blood Count 13.06 K/uL 11.96 K/uL Red Blood Count 5.17 M/uL 4.85 M/uL Hemoglobin 16.4 g/dL 14.7 g/dL Hematocrit 46.0 % 43.2 % Mean Corpuscular Volume 89.0 fL 89.1 fL Mean Corpuscular Hemoglobin 31.7 pg 30.3 pg Mean Corpuscular Hemoglobin Concent 35.7 g/dl 34.0 g/dl Platelet Count 255 K/uL 248 K/uL Mean Platelet Volume 9.8 fL 9.8 fL Neutrophils (%) (Auto) 88.1 % 82.4 % Lymphocytes (%) (Auto) 7.2 % 8.2 % Monocytes (%) (Auto) 4.3 % 9.0 % Eosinophils (%) (Auto) 0.1 % 0.2 % Basophils (%) (Auto) 0.1 % 0.1 % Neutrophils # (Auto) 11.51 K/uL 9.86 K/uL Lymphocytes # (Auto) 0.94 K/uL 0.98 K/uL Monocytes # (Auto) 0.56 K/uL 1.08 K/uL Eosinophils # (Auto) 0.01 K/uL 0.02 K/uL Basophils # (Auto) 0.01 K/uL 0.01 K/uL RDW Standard Deviation 38.9 fL 39.1 fL RDW Coefficient of Variation 12.0 % 12.2 % Immature Granulocyte % (Auto) 0.2 % 0.1 % Immature Granulocyte # (Auto) 0.03 K/uL 0.01 K/uL Sodium Level 137 mmol/L 141 mmol/L Potassium Level 4.1 mmol/L 4.0 mmol/L Chloride Level 102 mmol/L 107 mmol/L Carbon Dioxide Level 29 mmol/L 26 mmol/L Anion Gap 6.0 mmol/L 8.0 mmol/L Blood Urea Nitrogen 21 mg/dl 13 mg/dl Creatinine 1.10 mg/dl 0.92 mg/dl Est Creatinine Clear Calc Drug Dose 120.7 ml/min 144.3 ml/min Estimated GFR () 105.3 130.7 Estimated GFR (Non- 90.9 112.8 BUN/Creatinine Ratio 19.2 13.7 Random Glucose 117 mg/dl 103 mg/dl Calcium Level 9.9 mg/dl 8.5 mg/dl Magnesium Level 2.3 mg/dl 2.3 mg/dl Total Bilirubin 0.6 mg/dl Direct Bilirubin 0.1 mg/dl Aspartate Amino Transf (AST/SGOT) 19 U/L Alanine Aminotransferase (ALT/SGPT) 34 U/L Alkaline Phosphatase 67 U/L Total Protein 8.4 gm/dl Albumin 4.5 gm/dl Lipase 156 U/L Urine Color YELLOW Urine Appearance CLEAR Urine pH 5.0 Urine Specific Morris 1.029 Urine Protein NEG Urine Glucose (UA) NEG Urine Ketones 1+ Urine Occult Blood NEG Urine Nitrite NEG Urine Bilirubin NEG Urine Urobilinogen NEG Urine Leukocyte Esterase NEG Assessment and Plan SBO/possible closed loop obstruction as with internal hernia - General Surgery on case. - Pain is improved, so far no BM but passing flatus. - Cont normal saline with potassium chloride 20 mEq at 100 mils per hour, Zosyn 3.375 mg IV every 6 hours, Protonix 40 mg IV daily and Zofran 4 mg IV every 6 hours when necessary. - Surgery Dr. Multani - CT done without oral contrast; will repeat - NGT if begins vomiting - currently feels better - if closed loop may need exploration Continued [facility] stay due to: multiple IV medications needed Discharge planning: uncertain
[2017-01-11 23:00] VITALS: BP 104/63; PULSE 72; TEMP 36.8; O2SAT 97
[2017-01-12] MEDS: PIPERACILL/TAZOBAC IV 3.375 GM in DEXTROSE 5% 100ML IV SCH ×3 (05:43→22:00)
[2017-01-12] MEDS: NSS + 20MEQ KCL 1000ML 1,000 ML IV SCH (05:43)
[2017-01-12 05:51] LABS: BASO % 0.2 %; BASO ABS # 0.01 K/uL (0-0.2); COMPLETE YES; HEMATOCRIT 38.7 % (42-52); IG% 0.2 %; LYMPH % 24.8 %; LYMPH ABS # 1.46 K/uL (1.2-3.4); MEAN CELL VOLUME 91.1 fL (80-100); MEAN CORPUSCULAR HEMOGLOBIN 31.1 pg (25-34); MEAN CORPUSCULAR HGB CONC 34.1 g/dl (32-36); MEAN PLATELET VOLUME 9.7 fL (7.4-10.4); MONO % 11.6 %; NEUT % 62.2 %; PLATELET COUNT 192 K/uL (130-400); RED BLOOD COUNT 4.25 M/uL (4.7-6.1); WHITE BLOOD COUNT 5.88 K/uL (4.8-10.8)
[2017-01-12 06:33] LABS: BUN/CREATININE RATIO 10.8 (10-20); CALCIUM 8.4 mg/dl (8.5-10.1); CREATININE 0.96 mg/dl (0.60-1.40); MAGNESIUM 2.3 mg/dl (1.8-2.4); POTASSIUM 4.4 mmol/L (3.5-5.1)
[2017-01-12 06:51] VITALS: BP 100/62; PULSE 73; TEMP 36.8; O2SAT 96
--- NOTE | 2017-01-12 09:48 | DIAGNOSTIC IMAGING REPORT ---
KUB HISTORY: Small bowel obstruction. Follow-up. COMPARISON: Abdomen and pelvis CT 01/11/2017. FINDINGS: The oral contrast is now seen within the colon. Multiple mildly dilated gas-filled loops of small bowel within the midabdomen are not significantly changed. No renal calculi. No ureteral calculi. No pneumoperitoneum or pneumatosis. IMPRESSION: Multiple mildly dilated gas-filled loops of small bowel seen within the midabdomen are not significantly changed. This is consistent with a small bowel obstruction. However, the oral contrast is now seen within the colon. Therefore, this favors a partial small bowel obstruction. Electronically signed by: Juan Luis Brenner M.D. 01/12/2017 9:47 AM Dictated Date/Time: 01/12/2017 9:45 AM
[2017-01-12] MEDS: PANTOprazole INJ 40 MG in SYRINGE 0 ML IV SCH (10:04)
--- NOTE | 2017-01-12 10:08 | Surgery Progress Note ---
Surgery Progress Note Date of Service January 12, 2017. Subjective Post OP Day: HD 2 + bowel movement, + diet (npo), + feeling well, + flatus, No nausea, No vomiting Objective Vital Signs: Date Time Temp Pulse Resp B/P Pulse Ox O2 Delivery O2 Flow Rate FiO2 01/12/17 07:20 Room Air 01/12/17 06:51 36.8 73 18 100/62 96 Room Air 01/12/17 00:42 Room Air 01/11/17 23:00 36.8 72 18 104/63 97 Room Air 01/11/17 15:30 Room Air 01/11/17 15:25 36.8 76 16 131/89 95 Room Air General Appearance: WD/WN, no apparent distress Head: normocephalic, atraumatic Neck: supple, trachea midline Respiratory/Chest: lungs clear Cardiovascular: regular rate, rhythm Abdomen: normal bowel sounds, non tender, non distended, soft Extremities: non-tender, no pedal edema Laboratory Results: Results Past 24 Hours Test 01/12/17 05:30 Range/Units White Blood Count 5.88 4.8-10.8 K/uL Red Blood Count 4.25 4.7-6.1 M/uL Hemoglobin 13.2 14.0-18.0 g/dL Hematocrit 38.7 42-52 % Mean Corpuscular Volume 91.1 80-100 fL Mean Corpuscular Hemoglobin 31.1 25-34 pg Mean Corpuscular Hemoglobin Concent 34.1 32-36 g/dl Platelet Count 192 130-400 K/uL Mean Platelet Volume 9.7 7.4-10.4 fL Neutrophils (%) (Auto) 62.2 % Lymphocytes (%) (Auto) 24.8 % Monocytes (%) (Auto) 11.6 % Eosinophils (%) (Auto) 1.0 % Basophils (%) (Auto) 0.2 % Neutrophils # (Auto) 3.66 1.4-6.5 K/uL Lymphocytes # (Auto) 1.46 1.2-3.4 K/uL Monocytes # (Auto) 0.68 0.11-0.59 K/uL Eosinophils # (Auto) 0.06 0-0.5 K/uL Basophils # (Auto) 0.01 0-0.2 K/uL RDW Standard Deviation 41.4 36.4-46.3 fL RDW Coefficient of Variation 12.4 11.5-14.5 % Immature Granulocyte % (Auto) 0.2 % Immature Granulocyte # (Auto) 0.01 0.00-0.02 K/uL Sodium Level 144 136-145 mmol/L Potassium Level 4.4 3.5-5.1 mmol/L Chloride Level 109 98-107 mmol/L Carbon Dioxide Level 31 21-32 mmol/L Anion Gap 4.0 3-11 mmol/L Blood Urea Nitrogen 10 7-18 mg/dl Creatinine 0.96 0.60-1.40 mg/dl Est Creatinine Clear Calc Drug Dose 138.3 ml/min Estimated GFR () 124.2 Estimated GFR (Non- 107.1 BUN/Creatinine Ratio 10.8 10-20 Random Glucose 88 70-99 mg/dl Calcium Level 8.4 8.5-10.1 mg/dl Magnesium Level 2.3 1.8-2.4 mg/dl Assessment & Plan resolving partial SBO -contrast into colon -good BM -no pain -begin diet; advance as tolerated -discharge tonight or tomorrow per medicine if does well
--- NOTE | 2017-01-12 12:12 | Progress Note ---
Subjective Date of Service: January 12, 2017. Subjective Pt evaluation today including: conversation w/ patient, physical exam, chart review, lab review, review of studies, review of inpatient medication list Pain: no pain reported PO Intake: NPO Voiding: no voiding problems, no incontinence Pt is seen and examined by me. Pt reports three lose bowl movement. Pt denies abd pain. Feeling better, was going for KUB. Review of Systems All Other Systems: Reviewed and Negative Objective Vital Signs Date Time Temp Pulse Resp B/P Pulse Ox O2 Delivery O2 Flow Rate FiO2 01/12/17 07:20 Room Air 01/12/17 06:51 36.8 73 18 100/62 96 Room Air 01/12/17 00:42 Room Air 01/11/17 23:00 36.8 72 18 104/63 97 Room Air 01/11/17 15:30 Room Air 01/11/17 15:25 36.8 76 16 131/89 95 Room Air Physical Exam Comments: General Appearance: WD/WN, no apparent distress Head: normocephalic, atraumatic Neck: supple, trachea midline Respiratory/Chest: lungs clear Cardiovascular: regular rate, rhythm Abdomen: normal bowel sounds, non tender, non distended, soft Extremities: non-tender, no pedal edema Laboratory Results Last 24 Hours Test 01/12/17 05:30 White Blood Count 5.88 K/uL Red Blood Count 4.25 M/uL Hemoglobin 13.2 g/dL Hematocrit 38.7 % Mean Corpuscular Volume 91.1 fL Mean Corpuscular Hemoglobin 31.1 pg Mean Corpuscular Hemoglobin Concent 34.1 g/dl Platelet Count 192 K/uL Mean Platelet Volume 9.7 fL Neutrophils (%) (Auto) 62.2 % Lymphocytes (%) (Auto) 24.8 % Monocytes (%) (Auto) 11.6 % Eosinophils (%) (Auto) 1.0 % Basophils (%) (Auto) 0.2 % Neutrophils # (Auto) 3.66 K/uL Lymphocytes # (Auto) 1.46 K/uL Monocytes # (Auto) 0.68 K/uL Eosinophils # (Auto) 0.06 K/uL Basophils # (Auto) 0.01 K/uL RDW Standard Deviation 41.4 fL RDW Coefficient of Variation 12.4 % Immature Granulocyte % (Auto) 0.2 % Immature Granulocyte # (Auto) 0.01 K/uL Sodium Level 144 mmol/L Potassium Level 4.4 mmol/L Chloride Level 109 mmol/L Carbon Dioxide Level 31 mmol/L Anion Gap 4.0 mmol/L Blood Urea Nitrogen 10 mg/dl Creatinine 0.96 mg/dl Est Creatinine Clear Calc Drug Dose 138.3 ml/min Estimated GFR () 124.2 Estimated GFR (Non- 107.1 BUN/Creatinine Ratio 10.8 Random Glucose 88 mg/dl Calcium Level 8.4 mg/dl Magnesium Level 2.3 mg/dl Assessment and Plan SBO/possible closed loop obstruction as with internal hernia - General Surgery on case. - Pain is improved, so far no BM but passing flatus. - Cont normal saline with potassium chloride 20 mEq at 100 mils per hour, Zosyn 3.375 mg IV every 6 hours, Protonix 40 mg IV daily and Zofran 4 mg IV every 6 hours when necessary. - Surgery Dr. Multani - CT done without oral contrast; will repeat - NGT if begins vomiting - currently feels better - if closed loop may need exploration. - Per surgery resolving SBO, and patient has 3 BM, no pain KUB 01/12/17 Multiple mildly dilated gas-filled loops of small bowel seen within the midabdomen are not significantly changed. This is consistent with a small bowel obstruction. However, the oral contrast is now seen within the colon. Therefore, this favors a partial small bowel obstruction - will start diet as tolerated, possible discharge in am. Continued [facility] stay due to: other Discharge planning: home
[2017-01-12] MEDS ORDERED: NURSING VERBAL MED ORDER ONE (13:45)
[2017-01-12 15:23] VITALS: BP 133/81; PULSE 60; TEMP 36.5; O2SAT 97
[2017-01-12 15:45] VITALS: O2SAT 97
[2017-01-12 23:11] VITALS: BP 123/79; PULSE 60; TEMP 36.8; O2SAT 97
[2017-01-13] MEDS: PIPERACILL/TAZOBAC IV 3.375 GM in DEXTROSE 5% 100ML IV SCH ×2 (06:05→14:00)
[2017-01-13 06:24] LABS: BASO % 0.2 %; BASO ABS # 0.01 K/uL (0-0.2); COMPLETE YES; EOS % 1.4 %; HEMATOCRIT 39.4 % (42-52); IG% 0.2 %; LYMPH % 31.7 %; LYMPH ABS # 1.85 K/uL (1.2-3.4); MEAN CELL VOLUME 90.6 fL (80-100); MEAN CORPUSCULAR HEMOGLOBIN 31.5 pg (25-34); MEAN CORPUSCULAR HGB CONC 34.8 g/dl (32-36); MEAN PLATELET VOLUME 10.1 fL (7.4-10.4); MONO % 9.6 %; NEUT % 56.9 %; PLATELET COUNT 222 K/uL (130-400); RED BLOOD COUNT 4.35 M/uL (4.7-6.1); WHITE BLOOD COUNT 5.83 K/uL (4.8-10.8)
[2017-01-13 06:56] VITALS: BP 104/63; PULSE 61; TEMP 36.7; O2SAT 96
[2017-01-13 06:58] LABS: BUN/CREATININE RATIO 11.8 (10-20); MAGNESIUM 2.4 mg/dl (1.8-2.4); POTASSIUM 3.9 mmol/L (3.5-5.1)
[2017-01-13] MEDS: PANTOprazole INJ 40 MG in SYRINGE 0 ML IV SCH (10:26)
--- NOTE | 2017-01-13 11:23 | Surgery Progress Note ---
Surgery Progress Note Date of Service January 13, 2017. Subjective Post OP Day: HD # 3 + ambulating, + bowel movement, + diet (regular diet), + feeling well, + flatus , No SOB, No chest pain, No complaints, No nausea, No vomiting Objective Vital Signs: Date Time Temp Pulse Resp B/P Pulse Ox O2 Delivery O2 Flow Rate FiO2 01/13/17 07:30 Room Air 01/13/17 06:56 36.7 61 16 104/63 96 Room Air 01/12/17 23:30 Room Air 01/12/17 23:11 36.8 60 16 123/79 97 Room Air 01/12/17 19:30 Room Air 01/12/17 15:45 97 Room Air 01/12/17 15:23 36.5 60 16 133/81 97 Room Air General Appearance: WD/WN, no apparent distress Head: normocephalic, atraumatic Neck: trachea midline Respiratory/Chest: no respiratory distress, no accessory muscle use Abdomen: non tender, non distended, soft, no organomegaly Laboratory Results: Results Past 24 Hours Test 01/13/17 05:37 Range/Units White Blood Count 5.83 4.8-10.8 K/uL Red Blood Count 4.35 4.7-6.1 M/uL Hemoglobin 13.7 14.0-18.0 g/dL Hematocrit 39.4 42-52 % Mean Corpuscular Volume 90.6 80-100 fL Mean Corpuscular Hemoglobin 31.5 25-34 pg Mean Corpuscular Hemoglobin Concent 34.8 32-36 g/dl Platelet Count 222 130-400 K/uL Mean Platelet Volume 10.1 7.4-10.4 fL Neutrophils (%) (Auto) 56.9 % Lymphocytes (%) (Auto) 31.7 % Monocytes (%) (Auto) 9.6 % Eosinophils (%) (Auto) 1.4 % Basophils (%) (Auto) 0.2 % Neutrophils # (Auto) 3.32 1.4-6.5 K/uL Lymphocytes # (Auto) 1.85 1.2-3.4 K/uL Monocytes # (Auto) 0.56 0.11-0.59 K/uL Eosinophils # (Auto) 0.08 0-0.5 K/uL Basophils # (Auto) 0.01 0-0.2 K/uL RDW Standard Deviation 40.8 36.4-46.3 fL RDW Coefficient of Variation 12.2 11.5-14.5 % Immature Granulocyte % (Auto) 0.2 % Immature Granulocyte # (Auto) 0.01 0.00-0.02 K/uL Sodium Level 145 136-145 mmol/L Potassium Level 3.9 3.5-5.1 mmol/L Chloride Level 108 98-107 mmol/L Carbon Dioxide Level 30 21-32 mmol/L Anion Gap 7.0 3-11 mmol/L Blood Urea Nitrogen 12 7-18 mg/dl Creatinine 1.00 0.60-1.40 mg/dl Est Creatinine Clear Calc Drug Dose 132.8 ml/min Estimated GFR () 118.2 Estimated GFR (Non- 102.0 BUN/Creatinine Ratio 11.8 10-20 Random Glucose 101 70-99 mg/dl Calcium Level 9.0 8.5-10.1 mg/dl Magnesium Level 2.4 1.8-2.4 mg/dl Assessment & Plan Resolving Partial SBO -+bowel function -vitals stable - tolerating regular diet - no pain Plan: Patient ready to go home From surgical standpoint can be discharged Continue current management by hospitalist service Our services signing off
[2017-01-13] MEDS ORDERED: AMOX875T PO ×2 (14:19→14:37)
--- NOTE | 2017-01-13 14:22 | Discharge Instructions ---
Discharge Instructions Date of Service January 13, 2017. Admission Reason for Admission: SBO Discharge Discharge Diagnosis / Problem: partial SBO Discharge Goals Goal(s): Diagnostic testing, Therapeutic intervention Activity Recommendations Activity Limitations: resume your previous activity Instructions / Follow-Up Instructions / Follow-Up you have been treated in the hospital for a partial small bowel obstruction. Your symptoms have significantly improved. It is very important for you to follow up with your primary care physician within one week. You should also schedule follow up with a gastrointestinal doctor Please also follow-up with the general surgeon as scheduled Please finish the entire course of antibiotics Stay well hydrated. Call your doctor or return to the emergency department if you have any of the following symptoms: -Fever of 101F or greater -Returning abdominal pain -Nausea or vomiting -Blood in your stool Current Hospital Diet Patient's current hospital diet: Regular Diet Discharge Diet Recommended Diet: Regular Diet Pending Studies Studies pending at discharge: no Laboratory Results 01/13/17 05:37 Red Blood Count 4.35, Mean Corpuscular Volume 90.6, Mean Corpuscular Hemoglobin 31.5, Mean Corpuscular Hemoglobin Concent 34.8, Mean Platelet Volume 10.1, Neutrophils (%) (Auto) 56.9, Lymphocytes (%) (Auto) 31.7, Monocytes (%) (Auto) 9.6, Eosinophils (%) (Auto) 1.4, Basophils (%) (Auto) 0.2, Neutrophils # (Auto) 3.32, Lymphocytes # (Auto) 1.85, Monocytes # (Auto) 0.56, Eosinophils # (Auto) 0.08, Basophils # (Auto) 0.01 01/13/17 05:37 Test 01/13/17 05:37 White Blood Count 5.83 K/uL (4.8-10.8) Red Blood Count 4.35 M/uL (4.7-6.1) Hemoglobin 13.7 g/dL (14.0-18.0) Hematocrit 39.4 % (42-52) Mean Corpuscular Volume 90.6 fL (80-100) Mean Corpuscular Hemoglobin 31.5 pg (25-34) Mean Corpuscular Hemoglobin Concent 34.8 g/dl (32-36) Platelet Count 222 K/uL (130-400) Mean Platelet Volume 10.1 fL (7.4-10.4) Neutrophils (%) (Auto) 56.9 % Lymphocytes (%) (Auto) 31.7 % Monocytes (%) (Auto) 9.6 % Eosinophils (%) (Auto) 1.4 % Basophils (%) (Auto) 0.2 % Neutrophils # (Auto) 3.32 K/uL (1.4-6.5) Lymphocytes # (Auto) 1.85 K/uL (1.2-3.4) Monocytes # (Auto) 0.56 K/uL (0.11-0.59) Eosinophils # (Auto) 0.08 K/uL (0-0.5) Basophils # (Auto) 0.01 K/uL (0-0.2) RDW Standard Deviation 40.8 fL (36.4-46.3) RDW Coefficient of Variation 12.2 % (11.5-14.5) Immature Granulocyte % (Auto) 0.2 % Immature Granulocyte # (Auto) 0.01 K/uL (0.00-0.02) Anion Gap 7.0 mmol/L (3-11) Est Creatinine Clear Calc Drug Dose 132.8 ml/min Estimated GFR () 118.2 Estimated GFR (Non- 102.0 BUN/Creatinine Ratio 11.8 (10-20) Calcium Level 9.0 mg/dl (8.5-10.1) Magnesium Level 2.4 mg/dl (1.8-2.4) Medical Emergencies . Who to Call and When: Medical Emergencies: If at any time you feel your situation is an emergency, please call 911 immediately. . Non-Emergent Contact Non-Emergency issues call your: Primary Care Provider, Surgeon . . "Provider Documentation" section prepared by Alfreda Crews. . VTE Core Measure Inpt VTE Proph given/why not?: SCD's
--- NOTE | 2017-01-13 14:37 | Discharge Summary ---
Discharge Summary Date of Service January 13, 2017. Discharge Summary Admission Date: January 10, 2017 at 23:36 Discharge Date: January 13, 2017 Discharge Disposition: Home Principal Diagnosis: partial small bowel obstruction Consultations: General surgery Medication Reconciliation New Medications: Amoxicillin & Pot Clavulanate (Augmentin 875-125 mg) 1 Tab Tab 1 TAB PO BID for 4 Days, #8 TAB Continued Medications: Garcinia Cambogia-Chromium (Garcinia Cambogia) 1 Tab Tab 3 TABS PO TODAY Ibuprofen Tab (Advil) 200 Mg Tab 400 MG PO Q6 PRN for Headache or Pain, TAB Referrals At Discharge Follow up Referrals: Physician Referral - Within 1 Week with Damien Pandey M.D. Surgery Referral - Within 1 Week with Alexander Multani M.D. Discharge Exam Patient reports feeling fine. Denies any abdominal pain. It has completely resolved. Had multiple bowel movements that were loose. No blood in his stool. Denies any nausea or vomiting. Tolerated his dinner last evening and his breakfast this morning. Denies any fever Review of Systems: Constitutional: No fever Cardiovascular: No chest pain Abdomen: No nausea, No pain Physical Exam: General Appearance: no apparent distress Eyes: EOMI Neck: no JVD Respiratory/Chest: lungs clear Cardiovascular: regular rate, rhythm Abdomen / GI: normal bowel sounds, non tender, soft Extremities: no calf tenderness, no pedal edema Neurologic/Psychiatric: no motor/sensory deficits, oriented x 3 Skin: warm/dry Hospital Course 26-year-old male presented to the emergency department with abdominal pain, nausea and vomiting. Found to have SBO per CT SBO/possible closed loop obstruction -Admitted to medical floor -Gen surg consult -Kept NPO--> slowly advanced and tolerating on day of d/c -Started on Zosyn-->Rx for Augmentin for a total antibiotic course of 7 days -Repeat CT scan unchanged -Pt had multpiple BMs, tolerating diet, pain free at d/c -f/u gen surgery, PCP and GI Total Time Spent: Greater than 30 minutes This includes examination of the patient, discharge planning, medication reconciliation, and communication with other providers. Discharge Instructions Please refer to the electronic Patient Visit Report (Discharge Instructions) for additional information. Additional Copies To Alexander Multani M.D.; Damien Pandey M.D.
[2017-01-13 15:35] VITALS: BP 139/90; PULSE 64; TEMP 36.7; O2SAT 96
[2017-01-13 19:44] VITALS: BP 139/90; PULSE 64; TEMP 36.7; O2SAT 96
== END 2017-01-13 21:14 | disposition home or self-care (01) | DRG 390 ==
LOC: ENRESERVTM → ENRESERVDT → C.EDB 17:06 → C.MSW 23:36
PROVIDERS: ADMIT Hospitalist; ATTEND Hospitalist
DX: K56.60 Unspecified intestinal obstruction (principal)